=== PATIENT | male | born 1950 | race American Indian/Alaskan Native ===

== ENCOUNTER 2022-06-01 09:51 | Outpatient (CLI) | payer MEDICARE ==
--- NOTE | 2022-06-01 15:31 | Ultrasound Report ---
ULTRASOUND ABDOMEN, COMPLETE INDICATION / CLINICAL INFORMATION: ABDOMINAL PAIN R10.0. COMPARISON: None available. FINDINGS: PANCREAS: No significant abnormality. ABDOMINAL AORTA: Mildly ectatic proximal aorta measuring 2.9 cm. Moderate atherosclerotic calcificati on. IVC: No significant abnormality. LIVER: The liver is normal in size measuring 11.8 cm with mildly echogenic appearance. Multiple simpl e hepatic cysts, the largest measuring 2.5 cm within the right hepatic lobe. Normal hepatopedal blood flow within the main portal vein. GALLBLADDER: Tumefactive sludge as well as multiple small stones visualized without evidence of wall thickening or pericholecystic fluid. BILE DUCTS: No significant abnormality. Common bile duct measures 2 mm. KIDNEYS: Right: The right kidney measures 10.8 cm. Mildly complex (Bosniak 2) mid/lower pole cyst wit h thin internal septation measuring up to 1.4 cm. Left: The left kidney measures 11.0 cm. Simple mercedes earing midpole cyst measuring 1.0 cm. SPLEEN: The spleen is not visualized. FREE FLUID: None. ADDITIONAL FINDINGS: None. IMPRESSION: 1. Cholelithiasis without sonographic evidence of acute cholecystitis. 2. Mildly echogenic appearance of the liver, most commonly seen with steatosis. 3. Bilateral renal cysts, as above. Scribed by: Yesenia Perez RDMS, PRINCET, CHANDRA Scribed: 06/01/2022 1:49 PM I have reviewed the images, agree with this report, and edited this report as needed. Signer Name: Martinez Roy MD Signed: 06/01/2022 3:27 PM Workstation Name: [id number]
== END 2022-06-01 09:52 | disposition home or self-care (01) ==
LOC: US 09:51
PROVIDERS: ATTEND Internal Medicine
DX: K80.20 Calculus of gallbladder without cholecystitis without obstruction (principal); K76.89 Other specified diseases of liver; N28.1 Cyst of kidney, acquired; I25.10 Atherosclerotic heart disease of native coronary artery without angina pectoris
CPT/HCPCS: 76700